=== PATIENT | female | born 1985 | race Caucasian/White ===

== ENCOUNTER 2017-05-01 14:58 | Emergency (ER) | payer OTHER ==
[~2017-05-01] VITALS: Ht 175.3 cm; Wt 97.5 kg
[~2017-05-01 14:58] MED LIST: CIPRO500 MG PO; IMODIUM A-D2 MG PO; OSEL75CA PO
[2017-05-02] MEDS ORDERED: CEFUROXIME500 MG PO (02:56)
[2017-05-02] MEDS ORDERED: KETO10TA2 PO (02:56)
== END 2017-05-02 02:52 | disposition home or self-care (01) ==
LOC: ER 14:58
DX: N39.0 Urinary tract infection, site not specified (principal); R10.32 Left lower quadrant pain

== ENCOUNTER → 2018-05-05 | Emergency (ER) | payer OTHER ==
[~2018-05-05] VITALS: Ht 172.7 cm; Wt 97.1 kg
[~2018-05-05] MED LIST changes: +CEFUROXIME500 MG PO; +KETO10TA2 PO
== END | disposition left against medical advice (07) ==
LOC: ER 23:52
DX: Z53.20 Procedure and treatment not carried out because of patient's decision for unspecified reasons (principal)